=== PATIENT | female | born 1965 | race Caucasian/White ===

== ENCOUNTER 2018-10-12 15:31 | Emergency (ER) | payer OTHER ==
[~2018-10-12] VITALS: Ht 160 cm; Wt 81.7 kg
[~2018-10-12 15:31] MED LIST: ALBU90OI INH; ALBUTEROL; AMOX500 PO; BUSP10 PO; CHLO500 PO; CODGUAEL PO; CYCL10 PO; GABA300 PO; HYDACE5 PO; HYDACE5325 PO; HYDSUL200 PO; IBUP600 PO; IBUP800 PO; LAVAP17G PO; LEVCAR2510 PO; LEVFLO500 PO; LIDO2L MM; METR500 PO; NAPR500 PO; NAPROXEN; OMEP40CA12 PO; OXYACE5T PO; PENICILLIN; PHENA200 PO; PRED20 PO; PREG75 PO; PROM25 PO; RXHYDACE PO; RXOXYACE PO; SULTRIDS PO; Strattera100 MG PO; TRAM50 PO
[2018-10-12] MEDS ORDERED: Percocet 5-3251 EACH PO (16:13)
[2018-10-12] MEDS ORDERED: Amoxicillin875 MG PO (16:13)
[2018-10-12] MEDS ORDERED: PAROEX473 ML MM (16:13)
== END 2018-10-12 16:16 | disposition home or self-care (01) ==
LOC: ER 15:31
DX: K04.7 Periapical abscess without sinus (principal); F17.210 Nicotine dependence, cigarettes, uncomplicated; Z86.19 Personal history of other infectious and parasitic diseases; Z91.040 Latex allergy status; Z88.8 Allergy status to other drugs, medicaments and biological substances
CPT/HCPCS: 99282

== ENCOUNTER 2019-09-13 11:04 | Emergency (ER) | payer OTHER ==
[~2019-09-13] VITALS: Ht 160 cm; Wt 81.7 kg
[~2019-09-13 11:04] MED LIST changes: +Amoxicillin875 MG PO; +Norco 5-325 Ta1 EACH PO; +PAROEX473 ML MM; +Percocet 5-3251 EACH PO
[2019-09-13] MEDS ORDERED: Loratadine10 MG PO (11:32)
[2019-09-13] MEDS ORDERED: ALBU90OI INH (14:18)
[2019-09-13] MEDS ORDERED: Prednisone20 MG PO (14:18)
[2019-09-13] MEDS ORDERED: Pepcid20 MG PO (14:18)
[2019-09-13] MEDS ORDERED: Vistaril25 MG PO (14:18)
== END 2019-09-13 14:45 | disposition home or self-care (01) ==
LOC: ER 11:04
DX: L50.0 Allergic urticaria (principal); T45.0X5A Adverse effect of antiallergic and antiemetic drugs, initial encounter; G47.30 Sleep apnea, unspecified; F17.210 Nicotine dependence, cigarettes, uncomplicated; Z91.09 Other allergy status, other than to drugs and biological substances; Z88.8 Allergy status to other drugs, medicaments and biological substances; Z91.040 Latex allergy status; Z99.89 Dependence on other enabling machines and devices
CPT/HCPCS: 71046; 94640; 99283-25; J7512; Q0163

== ENCOUNTER → 2020-02-02 | Outpatient (CLI) | payer OTHER ==
[~2020-02-02] MED LIST changes: +Loratadine10 MG PO; +Pepcid20 MG PO; +Prednisone20 MG PO; +Vistaril25 MG PO
[2020-02-03 15:08] LABS: HPV 16 Negative (Negative); HPV 18 Negative (Negative); HPV OTHER HR TYPES Negative (Negative)
== END | disposition home or self-care (01) ==
LOC: LAB SHORT 11:41 → LAB UCHC 11:41
PROVIDERS: Family Medicine
DX: Z01.419 Encounter for gynecological examination (general) (routine) without abnormal findings (principal)
CPT/HCPCS: 87624; G0123

== ENCOUNTER 2020-10-18 09:56 | Emergency (ER) | payer OTHER | END 2020-10-18 10:49 | disposition home or self-care (01) | LOC: ER 09:56 | DX: L03.211 Cellulitis of face (principal); F17.210 Nicotine dependence, cigarettes, uncomplicated; Z91.040 Latex allergy status; Z88.8 Allergy status to other drugs, medicaments and biological substances; Z79.52 Long term (current) use of systemic steroids; Z79.899 Other long term (current) drug therapy ==

== ENCOUNTER 2020-10-19 20:55 | Emergency (ER) | payer OTHER | END 2020-10-20 02:10 | disposition home or self-care (01) | LOC: ER 20:55 | DX: L03.211 Cellulitis of face (principal); Z91.041 Radiographic dye allergy status; Z88.1 Allergy status to other antibiotic agents; Z91.013 Allergy to seafood; Z79.52 Long term (current) use of systemic steroids; Z88.0 Allergy status to penicillin; Z79.899 Other long term (current) drug therapy ==

== ENCOUNTER 2023-01-02 09:44 | Emergency (ER) | payer OTHER ==
[~2023-01-02] VITALS: Ht 157.5 cm; Wt 86.2 kg
[~2023-01-02 09:44] MED LIST changes: +CLIN300 PO; +HYDR1TAB94 PO; +Veetids 500500 MG PO
[2023-01-02 09:50] VITALS: BP 190/88
[2023-01-02] MEDS ORDERED: Percocet 5-3251 EACH PO (11:49)
== END 2023-01-02 12:12 | disposition home or self-care (01) ==
LOC: ER 09:44
DX: M54.50 Low back pain, unspecified (principal); M06.9 Rheumatoid arthritis, unspecified; M79.7 Fibromyalgia; G25.81 Restless legs syndrome; F17.210 Nicotine dependence, cigarettes, uncomplicated; Z91.041 Radiographic dye allergy status; Z91.013 Allergy to seafood; Z91.040 Latex allergy status; Z88.8 Allergy status to other drugs, medicaments and biological substances; Z79.890 Hormone replacement therapy
CPT/HCPCS: 99283; A9270

== ENCOUNTER 2023-05-05 19:00 | Emergency (ER) | payer OTHER ==
[~2023-05-05] VITALS: Ht 157.5 cm; Wt 86.2 kg
[2023-05-05 19:19] VITALS: BP 173/71
[2023-05-05 19:56] LABS: Source, Urine Clean Catch
[2023-05-05 19:59] LABS: Appearance, Urine Cloudy (Clear); Bilirubin, Urine Neg (Neg); Blood, Urine 5+ (Neg); Color, Urine Yellow (P-Yellow); Glucose Qualitative, Urine Neg (Neg); Ketones, Urine Neg (Neg); Leukocyte Esterase, Urine 2+ (Neg); Nitrite, Urine Pos (Neg); Protein, Urine 3+ (Neg); Urobilinogen, Urine NORM (Normal)
[2023-05-05 20:18] LABS: White Blood Cells, Urine 25-50 /hpf (0-5)
[2023-05-05 20:19] LABS: Red Blood Cells, Urine 25-50 /hpf (0-2)
[2023-05-05 20:20] LABS: Bacteria Mod /hpf; Squamous Epithelial Cells Few /hpf (Few)
[2023-05-05] MEDS ORDERED: Cephalexin Monohydrate 500 MG Cap PO ONE (21:20)
[2023-05-05] MEDS ORDERED: CEPH500 PO (21:34)
== END 2023-05-05 21:29 | disposition home or self-care (01) ==
LOC: ER 19:00
PROVIDERS: Student in an Organized Health Care Education/Training Program
DX: N39.0 Urinary tract infection, site not specified (principal); F17.210 Nicotine dependence, cigarettes, uncomplicated; Z88.8 Allergy status to other drugs, medicaments and biological substances; Z91.013 Allergy to seafood; Z91.040 Latex allergy status; Z79.899 Other long term (current) drug therapy; Z79.52 Long term (current) use of systemic steroids
CPT/HCPCS: 81001; 87077; 87086; 87186; 99283; A9270

== ENCOUNTER 2023-10-22 11:52 | Emergency (ER) | payer OTHER ==
[~2023-10-22] VITALS: Ht 157.5 cm; Wt 86.2 kg
[~2023-10-22 11:52] MED LIST changes: +CEPH500 PO
[2023-10-22 11:59] VITALS: BP 132/79
[2023-10-22] MEDS ORDERED: Ketorolac Tromethamine 30mg Vial IM ONE (13:35)
== END 2023-10-22 13:48 | disposition home or self-care (01) ==
LOC: ER 11:52
DX: M54.50 Low back pain, unspecified (principal); G89.29 Other chronic pain; X50.0XXA Overexertion from strenuous movement or load, initial encounter; M48.00 Spinal stenosis, site unspecified; M43.10 Spondylolisthesis, site unspecified; G47.30 Sleep apnea, unspecified; F17.210 Nicotine dependence, cigarettes, uncomplicated; Z88.8 Allergy status to other drugs, medicaments and biological substances; Z91.040 Latex allergy status; Z91.013 Allergy to seafood; Z79.899 Other long term (current) drug therapy
CPT/HCPCS: 96372; 99283-25; J1885

== ENCOUNTER 2023-11-25 01:33 | Observation (INO) | payer OTHER ==
[~2023-11-25] VITALS: Ht 157.5 cm; Wt 87.3 kg
[2023-11-25] VITALS (14 sets, daily range): BP systolic 79–180; BP diastolic 47–86
[2023-11-25 02:23] LABS: Source, Urine Clean Catch
[2023-11-25 02:25] LABS: Bilirubin, Urine Neg (Neg); Blood, Urine Neg (Neg); Glucose Qualitative, Urine Neg (Neg); Ketones, Urine Neg (Neg); Leukocyte Esterase, Urine Neg (Neg); Nitrite, Urine Neg (Neg); Protein, Urine Neg (Neg); Urobilinogen, Urine NORM (Normal)
[2023-11-25 02:44] LABS: Appearance, Urine Clear (Clear); Color, Urine Pale Yellow (P-Yellow)
[2023-11-25 02:47] LABS: BASOPHILS ABSOLUTE AUTO 0.05 K/mm3 (0.00-0.23); BASOPHILS PERCENT AUTO 1 % (0-2); EOSINOPHILS ABSOLUTE AUTO 0.03 K/mm3 (0.00-0.68); EOSINOPHILS PERCENT AUTO 0 % (0-6); Hematocrit 43.2 % (33.0-51.0); Hemoglobin 14.6 g/dL (11.5-16.0); IMMATURE GRAN ABSOLUTE AUTO 0.04 K/mm3 (0.00-0.10); IMMATURE GRAN PERCENT AUTO 0 % (0-1); LYMPHOCYTES ABSOLUTE AUTO 1.22 K/mm3 (0.84-5.20); LYMPHOCYTES PERCENT AUTO 12 % (21-46); MONOCYTES ABSOLUTE AUTO 0.37 K/mm3 (0.16-1.47); MONOCYTES PERCENT AUTO 4 % (4-13); Mean Corpuscular HGB Conc 33.8 g/dL (31.5-36.5); Mean Corpuscular Volume 89 fL (80-100); Mean Platelet Volume 10.6 fL (9.1-12.4); NEUTROPHILS ABSOLUTE AUTO 8.36 K/mm3 (1.96-9.15); NEUTROPHILS PERCENT AUTO 83 % (41-73); Platelet Count 285 K/mm3 (150-400); RDW Standard Deviation 38.9 fL (35.1-46.3); Red Blood Cell Count 4.87 M/mm3 (3.80-5.20); White Blood Cell Count 10.07 K/mm3 (4.00-11.30)
[2023-11-25 03:07] LABS: Albumin, Blood 3.5 g/dL (3.4-5.0); Albumin/Globulin Ratio 0.9 (0.8-1.8); Bilirubin, Total 0.7 mg/dL (0.1-1.0); Bun/Creatinine Ratio 16.3 (12.0-20.0); Calcium, Blood 9.4 mg/dL (8.5-10.1); Creatinine, Blood 0.92 mg/dL (0.40-1.00); Potassium, Blood 4.1 mmol/L (3.5-5.5); Total Protein, Blood 7.5 g/dL (6.4-8.2)
[2023-11-25] MEDS ORDERED: Ketorolac Tromethamine 30mg Vial IV ONE (04:15)
[2023-11-25] MEDS ORDERED: NS 1,000 ML IV SCH ×2 (04:45→08:00)
[2023-11-25] MEDS ORDERED: Ondansetron HCl 2 MG / ML 2ML Vial IV ONE (04:45)
[2023-11-25] MEDS ORDERED: Pantoprazole Sodium 40 MG Injection IV ONE (04:45)
[2023-11-25] MEDS ORDERED: Piperacillin/Tazobactam Sod 4.5 GM in NS 100 ML IV ONE (06:45)
[2023-11-25] MEDS ORDERED: Piperacillin/Tazobactam Sod 4.5 GM ONE (06:51)
[2023-11-25] MEDS ORDERED: NS 100 ML IV ONE ×3 (06:52→23:23)
[2023-11-25] MEDS ORDERED: Ondansetron HCl 2 MG / ML 2ML Vial IV PRN (08:00)
[2023-11-25] MEDS ORDERED: Ketorolac Tromethamine 30mg Vial IV PRN (08:05)
[2023-11-25] MEDS ORDERED: Rocuronium Bromide 10 MG/ML 5ML Injection IV ONE (12:26)
[2023-11-25] MEDS ORDERED: propofoL 20 ML IV ONE (12:26)
[2023-11-25] MEDS ORDERED: FentaNYL Citrate 50 MCG/ML 2 ML Injection ONE (12:26)
[2023-11-25] MEDS ORDERED: Dexamethasone Sod Phos 10 MG/ML 1ML VIAL ONE (12:26)
[2023-11-25] MEDS ORDERED: SuccINYLCHOLINE Chloride 100 MG/5 ML 5MLSYR ONE (12:26)
[2023-11-25] MEDS ORDERED: Ondansetron HCl 2 MG / ML 2ML Vial ONE (12:26)
[2023-11-25] MEDS ORDERED: Bupivacaine 0.5% HCl 5 MG/ML 30MLVIAL ONE (13:05)
--- NOTE | 2023-11-25 13:15 | NUR ---
TO OR VIA CART
[2023-11-25] MEDS ORDERED: Ketorolac Tromethamine 30mg Vial ONE (14:40)
[2023-11-25] MEDS ORDERED: Sugammadex Sodium 200 MG/2ML SDV (100 MG/ML) ONE (14:40)
[2023-11-25] MEDS ORDERED: ePHEDrine Sulfate 50 MG/ML 1ML Injection ONE (14:49)
[2023-11-25] MEDS ORDERED: Ampicillin Sod/Sulbactam Sod 3 GM in NS 100 ML IV SCH (16:00)
[2023-11-25] MEDS ORDERED: Ampicillin Sod/Sulbactam Sod 3 GM ONE ×2 (16:50→23:23)
--- NOTE | 2023-11-25 17:13 | NUR ---
NOTE: PT RETURNED FROM SURGERY AT 1630, REPORT RECEIVED FROM CHERIE BEEBE. PT HAS NO C/O PAIN OR NAUSEA. SHE SAID SHE FEELS WELL. PT OFFERED FOOD AND WATER, TOLERATING IT WELL. PT RETURNED WITH A POWERGLIDE. POST-OP VITALS HAVE BEGUN.
[2023-11-25] MEDS ORDERED: PEPCID40 MG PO (19:56)
[2023-11-25] MEDS ORDERED: PROAIR DIGIHAL90 MCG INH (19:57)
[2023-11-25] MEDS ORDERED: CYMBALTA30 M2 PO (19:57)
[2023-11-25] MEDS ORDERED: FLUTICASONE P INH (19:58)
[2023-11-25] MEDS ORDERED: ALEVE ARTHRITI100 GM TOP (19:59)
[2023-11-25] MEDS ORDERED: Suphedrine30 MG PO (20:01)
[2023-11-25] MEDS ORDERED: LIDOCAINE1 EACH TOP (20:01)
[2023-11-26 02:31] VITALS: BP 143/82
[2023-11-26] MEDS ORDERED: Ampicillin Sod/Sulbactam Sod 3 GM ONE (04:39)
[2023-11-26] MEDS ORDERED: NS 100 ML IV ONE (04:39)
[2023-11-26 05:21] LABS: BASOPHILS ABSOLUTE AUTO 0.01 K/mm3 (0.00-0.23); BASOPHILS PERCENT AUTO 0 % (0-2); EOSINOPHILS PERCENT AUTO 0 % (0-6); Hematocrit 37.1 % (33.0-51.0); Hemoglobin 12.5 g/dL (11.5-16.0); IMMATURE GRAN ABSOLUTE AUTO 0.03 K/mm3 (0.00-0.10); IMMATURE GRAN PERCENT AUTO 0 % (0-1); LYMPHOCYTES PERCENT AUTO 8 % (21-46); MONOCYTES ABSOLUTE AUTO 0.38 K/mm3 (0.16-1.47); MONOCYTES PERCENT AUTO 4 % (4-13); Mean Corpuscular HGB 29.6 pg (26.0-34.0); Mean Corpuscular HGB Conc 33.7 g/dL (31.5-36.5); Mean Corpuscular Volume 88 fL (80-100); Mean Platelet Volume 10.8 fL (9.1-12.4); NEUTROPHILS ABSOLUTE AUTO 8.31 K/mm3 (1.96-9.15); NEUTROPHILS PERCENT AUTO 87 % (41-73); Platelet Count 301 K/mm3 (150-400); RDW Coefficient Variation 12.1 % (11.7-14.2); RDW Standard Deviation 38.7 fL (35.1-46.3); Red Blood Cell Count 4.22 M/mm3 (3.80-5.20); White Blood Cell Count 9.53 K/mm3 (4.00-11.30)
[2023-11-26 05:49] LABS: Albumin, Blood 3.1 g/dL (3.4-5.0); Albumin/Globulin Ratio 0.9 (0.8-1.8); Bilirubin, Total 0.6 mg/dL (0.1-1.0); Bun/Creatinine Ratio 12.7 (12.0-20.0); Calcium, Blood 8.9 mg/dL (8.5-10.1); Creatinine, Blood 0.87 mg/dL (0.40-1.00); Globulin, Blood 3.5 g/dL (2.2-4.0); Potassium, Blood 4.3 mmol/L (3.5-5.5); Total Protein, Blood 6.6 g/dL (6.4-8.2)
--- NOTE | 2023-11-26 06:17 | NUR ---
SHIFT SUMMARY PT A&OX4 AND ANSWERS QUESTIONS APPROPRIATELY. PT POST OP FROM PROCEDURE ON 11/24. VSS, NO COMPLAINTS OF CP/PRESSURE OR SOB. NO ADVERSE EFFECTS NOTED AT THIS TIME. PT RECEIVED SCHEDULED AND PRN MEDICATION PER EMAR. PT SPENT MOST OF SHIFT IN BED WITH EYES CLOSED AND RESPIRATIONS EVEN AND UNLABORED. NO ACUTE EVENTS AT THIS TIME. PT INDEPENDENTLY REPOSITIONED. PT LEFT IN A POSITION OF SAFETY WITH FALL PRECAUTIONS IN PLACE AND CALL LIGHT IN REACH.
[2023-11-26 07:32] VITALS: BP 142/74
[2023-11-26] MEDS ORDERED: Enoxaparin 40 MG/0.4 ML SYR SC SCH (09:00)
[2023-11-26] MEDS ORDERED: TRAM50 PO (10:34)
[2023-11-26] MEDS ORDERED: OXYC10TA19 PO (10:55)
--- NOTE | 2023-11-26 11:54 | NUR ---
DISCHARGED PT PASSING FLATUS/TOLERATING DIET AND PAIN CONTROLLED. DC'D IV, CATHETER INTACT. REVIEWED DC INSTRUCTIONS; PT VERBALIZED UNDERSTANDING. PHONE LEFT IN ROOM, MANAGER EMS ATTEMTPING TO RETURN TO PT BEFORE PT LEAVES GROUNDS. PT LEFT UNIT WITH REST OF BELONGINGS AND DC PAPERWORK WITH HER IN , ACCOMPANIED BY SUPA.
== END 2023-11-26 11:43 | disposition home or self-care (01) ==
LOC: ER 01:33 → MEDS 01:34
PROVIDERS: Student in an Organized Health Care Education/Training Program; Surgery; ADMIT Internal Medicine
PROC: 0FT44ZZ Resection of Gallbladder, Percutaneous Endoscopic Approach (ICD-10-PCS; principal; 2023-11-25 13:30)
DX: K80.12 Calculus of gallbladder with acute and chronic cholecystitis without obstruction (principal); K82.8 Other specified diseases of gallbladder; K66.0 Peritoneal adhesions (postprocedural) (postinfection); G47.33 Obstructive sleep apnea (adult) (pediatric); G25.81 Restless legs syndrome; I16.0 Hypertensive urgency; J44.9 Chronic obstructive pulmonary disease, unspecified; G62.9 Polyneuropathy, unspecified; K21.9 Gastro-esophageal reflux disease without esophagitis; Z87.891 Personal history of nicotine dependence; Z88.8 Allergy status to other drugs, medicaments and biological substances; Z79.899 Other long term (current) drug therapy; Z91.013 Allergy to seafood; Z91.040 Latex allergy status; Z91.041 Radiographic dye allergy status; Z99.89 Dependence on other enabling machines and devices
CPT/HCPCS: 74176; 76705; 80053; 81003; 83690; 85025; 88304; 93005; 93010; 96361; 96365; 96375; 96376; 99285-25; C1751; G0378; J0295; J0330; J1100; J1650; J1885; J2405; J2470; J2543; J2704; J3010; J7030